=== PATIENT | female | born 1945 | race Caucasian/White ===

== ENCOUNTER 2017-04-27 06:23 | Day surgery (SDC) | payer OTHER ==
[2017-04-26 17:08] VITALS: BMI 32.8
[2017-04-27] MEDS ORDERED: LIDOCAINE HCL/PF 2% SDV 5ML VIAL ONE (08:05)
[2017-04-27] MEDS ORDERED: MIDAZOLAM HCL 2 MG/2 ML SINGLE DOSE VIAL ONE (08:05)
[2017-04-27] MEDS ORDERED: PROPOFOL 20 ML ONE ×2 (08:05)
[2017-04-27] MEDS ORDERED: LEVOFLOXACIN 500 MG IVPB 500 MG/100 ML BAG IVPB ONE (08:18)
[2017-04-27] MEDS ORDERED: LEVOFLOXACIN 500 MG PREMIX BAG IVPB ONE (08:22)
[2017-04-27] MEDS ORDERED: oxyCODONE HCL 5 MG TABLET PO PRN (08:34)
--- NOTE | 2017-04-27 08:35 | OP ---
Operative Note - Note: Operative Date: 04/27/17 Pre-Operative Diagnosis: rt kidney stone Operation: ESWL Post-Operative Diagnosis: Same as Pre-op Surgeon: Margarito Porter Anesthesia: General Operative Report Dictated: Yes
[2017-04-27] MEDS ORDERED: DEXTROSE 5%-0.45% SALINE 1,000 ML IV SCH (08:45)
[2017-04-27] MEDS ORDERED: ACETAMINOPHEN 325 MG TABLET (FP) PO PRN (08:57)
[2017-04-27] MEDS ORDERED: ONDANSETRON 4 MG/2 ML VIAL IVPUSH PRN (08:57)
[2017-04-27] MEDS ORDERED: LACTATED RINGERS SOLUTION 1,000 ML IV SCH (09:00)
[2017-04-27 09:25] VITALS: TEMP 98
[2017-04-27] MEDS ORDERED: ONDANSETRON 4 MG/2 ML VIAL ONE (10:09)
--- NOTE | 2017-04-27 11:22 | OP ---
DATE OF OPERATION: 04/27/2017 PREOPERATIVE DIAGNOSIS: Right kidney stone. POSTOPERATIVE DIAGNOSIS: Right kidney stone. PROCEDURE: Extracorporeal shock wave lithotripsy. SURGEON: Tiffanie Almaguer MD INDICATIONS: Patient is a 72-year-old female noted to have a 1-cm stone in the right renal pelvis as well as a 1-cm lower pole stone and intermittent hematuria. After reviewing treatment options, patient elected to undergo ESWL of the 1-cm right renal pelvic stone understanding the risks of bleeding, infection, inadequate stone fragmentation, and potential need for additional procedures. DESCRIPTION OF PROCEDURE: After informed consent was obtained, the patient was taken to the OR and placed supine on the OR table. With cardiac monitoring administered and general anesthesia established, she was placed onto the lithotripsy table. Under active fluoroscopy and ultrasound guidance, the 1-cm stone in the renal pelvis was identified, and 2000 shocks were delivered with the stone centered in the crosshairs. There appeared to be active fragmentation of the stone noted on both fluoroscopy and ultrasound. Patient then was awoken from anesthesia and transferred to the recovery room in stable condition. There were no complications. Estimated blood loss was 0. TIFFANIE ALMAGUER M.D. [id number]
[2017-04-27 12:18] VITALS: BP 118/72; PULSE 58
== END 2017-04-27 12:00 | disposition home or self-care (01) ==
LOC: JASU-SURG 06:23
PROVIDERS: ATTEND Urology
PROC: 0TF3XZZ Fragmentation in Right Kidney Pelvis, External Approach (ICD-10-PCS; principal; 2017-04-27 08:00)
DX: N20.0 Calculus of kidney (principal)